=== PATIENT | male | born 2000 | race Caucasian/White ===

== ENCOUNTER 2021-01-23 08:32 | Emergency (ER) | payer OTHER ==
[~2021-01-23] VITALS: Ht 193 cm; Wt 71.7 kg
[2021-01-23] MEDS ORDERED: IBUP-1022 PO (10:04)
[2021-01-23 11:07] VITALS: BP 110/53
== END 2021-01-23 11:08 | disposition home or self-care (01) ==
LOC: M ED 08:32
DX: F07.81 Postconcussional syndrome (principal)

== ENCOUNTER → 2021-01-27 | Outpatient (CLI) | payer OTHER ==
[~2021-01-27] MED LIST: IBUP-1022 PO
== END ==
LOC: M RAD 09:56
PROVIDERS: ATTEND Physician Assistant
DX: S06.0X0A Concussion without loss of consciousness, initial encounter (principal); W18.30XA Fall on same level, unspecified, initial encounter; Y93.89 Activity, other specified; Y92.89 Other specified places as the place of occurrence of the external cause; Y99.1 Military activity

== ENCOUNTER 2022-05-28 18:41 | Emergency (ER) | payer OTHER ==
[~2022-05-28] VITALS: Ht 190.5 cm; Wt 68.0 kg
[2022-05-28 18:42] VITALS: BP 134/70
[2022-05-28] MEDS ORDERED: AMIT25TA17 PO (19:09)
[2022-05-28] MEDS ORDERED: ACET-683 PO (19:09)
== END 2022-05-28 21:52 | disposition left against medical advice (07) ==
LOC: M ED 18:41
DX: Z53.21 Procedure and treatment not carried out due to patient leaving prior to being seen by health care provider (principal)